=== PATIENT | female | born 1955 | race Caucasian/White ===

== ENCOUNTER 2019-01-23 02:56 | Observation (INO) | payer OTHER ==
[~2019-01-23] VITALS: Ht 170.2 cm; Wt 78.2 kg
[~2019-01-23 02:56] MED LIST: ALBU8.5H8 INH; AMLO2.5T78 PO; ATOR40TA68 PO; BECL10.6 IH; DOCU100T PO; FAMO20TA18 PO; FURO20TA3 PO; INSU100I33 SC; INSU100I35 SQ; LISI-471 PO; LISI2.5T59 PO; METO-448 PO
[2019-01-23] MEDS ORDERED: SOD CHLORIDE 0.9% 500 ML IV STA (03:04)
[2019-01-23] MEDS ORDERED: ONDANSETRON 4 MG INJ IV PRN ×2 (06:00→07:00)
[2019-01-23] MEDS ORDERED: ACETAMINOPHEN 325 MG TAB PO PRN ×2 (06:00→07:00)
[2019-01-23] MEDS ORDERED: morphine 2 MG INJ IV PRN (07:00)
[2019-01-23] MEDS: SOD CHLORIDE 0.9% 1,000 ML IV SCH ×3 (09:32→20:20)
[2019-01-23] MEDS: DOCUSATE SODIUM 100 MG CAP PO SCH (09:34)
[2019-01-23] MEDS: ENOXAPARIN 40 MG/0.4 ML SYG SC SCH (09:34)
[2019-01-23] MEDS: FAMOTIDINE 20 MG TAB PO SCH (09:34)
[2019-01-23] MEDS: ATORVASTATIN 40 MG TAB PO SCH (09:34)
[2019-01-23] MEDS: AMLODIPINE 10 MG TAB PO SCH (09:50)
[2019-01-23] MEDS: LISINOPRIL 20 MG TAB PO SCH (09:51)
[2019-01-23] MEDS: INSULIN GLARGINE [LANTus] (100 UNITS/ML) SYG SC SCH (09:53)
[2019-01-23] MEDS: INSULIN ASPART [NOVOLOG] 3 ML PEN SC SCH ×4 (09:54→20:35)
[2019-01-23] MEDS ORDERED: POTASSIUM CHLORIDE (SR) 10 MEQ TAB PO ONE (10:30)
[2019-01-23] MEDS: FUROSEMIDE 20 MG TAB PO SCH (11:23)
[2019-01-23 16:00] VITALS: Ht 170.2 cm; Wt 78.2 kg
[2019-01-23 19:52] VITALS: BP 105/52; PULSE 62; RESP 18
[2019-01-23 23:42] VITALS: BP 113/57; PULSE 62; RESP 18
[2019-01-24 04:00] VITALS: BP 107/51; PULSE 107; RESP 18
[2019-01-24] MEDS: SOD CHLORIDE 0.9% 1,000 ML IV SCH (07:27)
[2019-01-24 07:38] VITALS: BP 116/55; PULSE 64; RESP 20
[2019-01-24] MEDS: INSULIN ASPART [NOVOLOG] 3 ML PEN SC SCH ×2 (08:00→12:00)
[2019-01-24] MEDS: ATORVASTATIN 40 MG TAB PO SCH (08:56)
[2019-01-24] MEDS: FUROSEMIDE 20 MG TAB PO SCH (08:56)
[2019-01-24] MEDS: FAMOTIDINE 20 MG TAB PO SCH (08:57)
[2019-01-24] MEDS: LISINOPRIL 20 MG TAB PO SCH (08:58)
[2019-01-24] MEDS: AMLODIPINE 10 MG TAB PO SCH (08:58)
[2019-01-24] MEDS: ENOXAPARIN 40 MG/0.4 ML SYG SC SCH (08:59)
[2019-01-24] MEDS: DOCUSATE SODIUM 100 MG CAP PO SCH (09:00)
[2019-01-24] MEDS ORDERED: POTASSIUM CHLORIDE (SR) 10 MEQ TAB PO SCH (09:00)
[2019-01-24] MEDS: INSULIN GLARGINE [LANTus] (100 UNITS/ML) SYG SC SCH (09:32)
[2019-01-24 11:11] VITALS: BP 137/63; PULSE 62; RESP 19
[2019-01-24 15:41] VITALS: BP 127/69; PULSE 68; RESP 20
== END 2019-01-24 16:30 | disposition home or self-care (01) ==
LOC: E/R 02:56 → 6WM 05:36
PROVIDERS: ADMIT Legal Medicine; ATTEND Legal Medicine
DX: R00.1 Bradycardia, unspecified (principal); J45.909 Unspecified asthma, uncomplicated; J44.9 Chronic obstructive pulmonary disease, unspecified; E11.9 Type 2 diabetes mellitus without complications; I11.0 Hypertensive heart disease with heart failure; I50.9 Heart failure, unspecified; I42.9 Cardiomyopathy, unspecified; E78.5 Hyperlipidemia, unspecified; E87.6 Hypokalemia; Z79.4 Long term (current) use of insulin; Z83.3 Family history of diabetes mellitus
CPT/HCPCS: 36415; 71045; 80048; 81001; 82962; 83880; 84484; 85025; 85610; 86850; 86900; 86901; 93005; 93306; 96360; 96361; 97162; J1650; J1815; J7030; J7040; Z7500; Z7502; Z7610; 96372; G0378